=== PATIENT | female | born 1960 | race Caucasian/White ===

== ENCOUNTER 2020-07-23 09:51 | Emergency (ER) | payer OTHER, SELFPAY ==
[2020-07-23 10:00] VITALS: BP 156/80; PULSE 100; RESP 19; TEMP 36.6; O2SAT 95; BMI 23.5
--- NOTE | 2020-07-23 10:16 | XR_ITS ---
EXAMINATION: LEFT FOOT. LEFT ANKLE. LEFT KNEE. CLINICAL INFORMATION: Fall one week ago. COMPARISON: None TECHNIQUE: Left foot 3 views. Left ankle 2 views. Left knee 4 views. FINDINGS: Left foot: There is mild hallux valgus deformity first MTP joint. No visible acute fracture, dislocation or subluxation seen. The soft tissues are normal. Left ankle: There is a small calcaneal heel and retrocalcaneal enthesophytes. The ankle mortise and subtalar joints are normal. No abnormal joint effusion seen. Left knee: There is no visible acute fracture, dislocation or subluxation. There is mild anterior and anterior superior patella enthesophytes. No abnormal joint effusion or loose body seen. XR/XR foot LT min 3V IMPRESSION: Mild hallux valgus deformity first MTP joint. No visible acute fracture, dislocation or subluxation seen in left foot or left ankle. Small retrocalcaneal and calcaneal enthesophytes. Small anterior superior anterior patellar enthesophytes. The left knee is otherwise unremarkable.
--- NOTE | 2020-07-23 10:16 | XR_ITS ---
EXAMINATION: LEFT FOOT. LEFT ANKLE. LEFT KNEE. CLINICAL INFORMATION: Fall one week ago. COMPARISON: None TECHNIQUE: Left foot 3 views. Left ankle 2 views. Left knee 4 views. FINDINGS: Left foot: There is mild hallux valgus deformity first MTP joint. No visible acute fracture, dislocation or subluxation seen. The soft tissues are normal. Left ankle: There is a small calcaneal heel and retrocalcaneal enthesophytes. The ankle mortise and subtalar joints are normal. No abnormal joint effusion seen. Left knee: There is no visible acute fracture, dislocation or subluxation. There is mild anterior and anterior superior patella enthesophytes. No abnormal joint effusion or loose body seen. XR/XR ankle LT 2V IMPRESSION: Mild hallux valgus deformity first MTP joint. No visible acute fracture, dislocation or subluxation seen in left foot or left ankle. Small retrocalcaneal and calcaneal enthesophytes. Small anterior superior anterior patellar enthesophytes. The left knee is otherwise unremarkable.
--- NOTE | 2020-07-23 10:16 | XR_ITS ---
EXAMINATION: LEFT FOOT. LEFT ANKLE. LEFT KNEE. CLINICAL INFORMATION: Fall one week ago. COMPARISON: None TECHNIQUE: Left foot 3 views. Left ankle 2 views. Left knee 4 views. FINDINGS: Left foot: There is mild hallux valgus deformity first MTP joint. No visible acute fracture, dislocation or subluxation seen. The soft tissues are normal. Left ankle: There is a small calcaneal heel and retrocalcaneal enthesophytes. The ankle mortise and subtalar joints are normal. No abnormal joint effusion seen. Left knee: There is no visible acute fracture, dislocation or subluxation. There is mild anterior and anterior superior patella enthesophytes. No abnormal joint effusion or loose body seen. XR/XR knee LT 3V IMPRESSION: Mild hallux valgus deformity first MTP joint. No visible acute fracture, dislocation or subluxation seen in left foot or left ankle. Small retrocalcaneal and calcaneal enthesophytes. Small anterior superior anterior patellar enthesophytes. The left knee is otherwise unremarkable.
--- NOTE | 2020-07-23 10:17 | ED_ITS ---
HPI - Extremity Injury (Lower) General Chief Complaint: Extremity Injury, Lower Stated Complaint: leg injury - work related Time Seen by Provider: 07/23/20 10:11 Source: patient Mode of arrival: ambulatory History of Present Illness HPI Narrative: 59-year-old female with no significant past medical history presenting to ED complaining of right knee/ankle/foot pain s/p fall/twisting injury at work 1 week ago. Reports tripped and fell over a roll. Denies preceding symptoms including CP/SOB, lightheadedness/dizziness. Denies head trauma or LOC. Has been ambulatory since the incident. Reports mild numbness/paresthesias in RLE. Related Data Allergies Allergy/AdvReac Type Severity Reaction Status Date / Time No Known Allergies Allergy Verified 07/23/20 09:59 Review of Systems Review of Systems: Constitutional: No Weight loss, No Fever, No Chills Cardiovascular: No Chest Pain, No SOB Respiratory: No dyspnea Musculoskeletal: + joint pain, No Myalgias, No Joint Swelling Skin: No Skin Lesions, No rash Neuro: No Weakness, + Numbness, + Paresthesias Yes all other systems are reviewed and are negative [facility] Past Medical History Attestation statement: The following information was validated with the patient. Social History Social History Advance Directives: No Advance Directives Information Provided: No Physical Exam Vital Signs: Vital Signs: Last Vital Signs Temp 98 F 07/23/20 10:00 Pulse 100 07/23/20 10:00 Resp 19 07/23/20 10:00 BP 156/80 H 07/23/20 10:00 Pulse Ox 95 07/23/20 10:00 Body Mass Index 23.5 Const: General: cooperative and healthy appearing Orientation/consciousness: patient oriented x3 Limitations: no limitations HENMT: Head: Yes normal to inspection Ears: hearing grossly normal bilaterally General nose exam: Normal external nose present Face and sinus: Yes normal facial exam Eyes: General: appearance normal, both eyes and all related structures EOM: EOMs intact bilaterally Neck: Neck: Yes normal visual inspection Resp: Effort & Inspection: normal respiratory effort Cardio: Rate: regular rate Peripheral pulses: dorsalis pedis present GI: Inspection: Yes normal to inspection Skin: Rashes: no rashes Wounds: no wounds Neuro: General: patient oriented x3 Gait exam (Neuro): Normal gait present Extrem: Other: + left knee with mild swelling and old surgical scar noted. +ttp, FROM intact, NV intact distally L ankle nontender, FROM intact L foot with mild ttp distally, FROM intact Course Course Course Narrative: * X-rays without acute fracture/dislocation MDM - Extremity Injury (Lower) MDM Narrative Medical decision making narrative: Rule out fracture versus strain/sprain Discharge Plan Discharge Clinical Impression: Arthralgia Qualifiers: Joint pain location: knee Laterality: left Qualified Code(s): M25.562 - Pain in left knee Patient Disposition: Home, Self-Care Instructions: Arthralgia (ED) Additional Instructions: Your imaging studies were unremarkable today in the ED Take Tylenol & Motrin for your pain Ice and elevate painful areas Follow-up with her doctor as needed If symptoms persist or worsen, he develop constant worsening numbness/tingling, or unable to ambulate return to the ED Referrals: Pierce Quintero MD [Primary Care Provider] - 2 days [facility] [Outside] - 2 days
== END 2020-07-23 11:33 | disposition home or self-care (01) ==
PROVIDERS: Emergency Provider Emergency Medicine; PCP Pediatrics
DX: Z04.2 Encounter for examination and observation following work accident (principal); M25.562 Pain in left knee
CPT/HCPCS: 73562; 73600; 73630; 99283